=== PATIENT | male | born 1965 | race Caucasian/White ===

== ENCOUNTER → 2017-07-04 | Outpatient (CLI) | payer OTHER ==
[~2017-07-04] MED LIST: BARIUM SULFATE 176 GM BTL PO ONE; BARIUM SULFATE 340 GM POWD ONE
--- NOTE | 2017-07-04 16:04 | RADIOLOGY IMAGING REPORT ---
FACILITY: [facility] [place] PATIENT NAME: Isaac Marquez : 1965 MR: [id number] V: [id number] EXAM DATE: ORDERING PHYSICIAN: RUTH HERNANDEZ TECHNOLOGIST: Location: [facility] Patient: Isaac Marquez : 1965 Visit/Account:[id number] Date of Sevice: 07/04/2017 Exam type: ESOPHAGRAM History: Difficulty swallowing food Comparison: None. Findings: Double contrast esophagram was performed with thick and thin barium there was no demonstration of gas troesophageal reflux however there was a significant narrowing in the distal esophagus at the lower e sophageal sphincter. A 12 mm barium tablet failed to pass through this narrowing into the stomach. No mucosal erosions identified The total fluoroscopy dose area product was 543.67 micro-Ross per mete r squared IMPRESSION: 1. Significant narrowing identified in the distal esophagus at the lower esophageal sphincter with f ailure of a 12 mm barium tablet to pass in to the stomach. No evidence of mucosal erosion identified . Gastric esophageal reflux could not be elicited during the examination Report Dictated By: Cindy Perez MD at 07/04/2017 3:53 PM Report E-Signed By: Cindy Perez MD at 07/04/2017 4:00 PM WSN:[email or web address]
== END ==
LOC: RAD 01:46
PROVIDERS: ATTEND Family Medicine
DX: K22.2 Esophageal obstruction (principal)
CPT/HCPCS: 74220

== ENCOUNTER 2017-07-10 00:36 | Day surgery (SDC) | payer OTHER ==
[~2017-07-10] VITALS: Ht 175.3 cm; Wt 86.6 kg
[2017-07-10] MEDS ORDERED: LIDOCAINE MPF 1% 5 ML VIAL ONE (06:50)
[2017-07-10] MEDS ORDERED: PROPOFOL EMUL(*) 10MG/ML 20 ML 60 ML ONE (06:50)
--- NOTE | 2017-07-10 07:33 | Post Operative Progress Note ---
Post Operative Progress Note Date: Jul 10, 2017 Time: 10:40 Surgeon: federica Anesthesia: dr arellano Pre-Op Diagnosis: dysphagia Post-Op Diagnosis: prepyloric erosions, erosion in duodenal bulb and distal esophageal narrowing Procedure(s): egd with dilation to 20 mm TRISHA PARK MD Jul 10, 2017 07:33
[2017-07-10 09:08] VITALS: BP 150/88
[2017-07-10] MEDS ORDERED: NORMOSOL R SOLN(*) 1000 ML BAG 1,000 ML IV PRN (09:35)
[2017-07-10] MEDS ORDERED: MIDAZOLAM 2 MG/2 ML VIAL IVP PRN (09:35)
[2017-07-10] MEDS ORDERED: LIDOCAINE/SOD BICARB 8.4% SYR ID ONE (09:35)
[2017-07-10] MEDS ORDERED: KETAMINE HCL 500 MG/10 ML VIAL ONE (10:14)
[2017-07-10 10:39] VITALS: BP 147/94
[2017-07-10] MEDS ORDERED: PANT40TA65 PO (10:42)
--- NOTE | 2017-07-10 10:43 | Short(Outpt) Discharge Summary ---
Discharge Summary Reason for Hosp/Final Diag: (1) Dysphagia Hospital Course & Plan: distal esophageal narrowing and prepyloric erosions and duodenal erosion, balloon dilation to 20 mm Departure Discharge to: Home Discharge Instructions Home Meds No Active Prescriptions or Reported Meds Diet: Regular Activity: As Tolerated TRISHA PARK MD Jul 10, 2017 10:43
[2017-07-10 11:04] VITALS: BP 163/97
[2017-07-10 11:26] VITALS: BP 158/97
[2017-07-10 11:27] VITALS: BP 162/98
[2017-07-10 11:30] VITALS: BP 161/99
--- NOTE | 2017-07-10 18:33 | OPERATIVE REPORT 1 ---
EVENT DATE: July 10, 2017 SURGEON: Jono Acosta MD ANESTHESIOLOGIST: Thuan Millan MD ANESTHESIA: Sedation. PREOPERATIVE DIAGNOSIS Dysphagia. POSTOPERATIVE DIAGNOSES 1. Distal esophageal narrowing. 2. Gastritis in the prepyloric area. 3. Duodenal erosion. PROCEDURE PERFORMED Esophagogastroduodenoscopy with balloon dilatation to 20 mm. DESCRIPTION OF PROCEDURE The patient was placed in the left lateral decubitus position and given intravenous sedation. The flexible gastroscope was inserted. The proximal esophagus distended nicely. At the distal esophagus, it was narrowed. There was some resistance getting the scope to go through into the stomach, but we were able to pass it. In the stomach, he had erosion and inflammation in the antrum. At the duodenal bulb, there was an erosion. The second and third portions of the duodenum appeared to be normal. The scope was then slowly withdrawn. The body of the stomach appeared to be normal. The scope was retroflexed. There were no fundic lesions. We then placed the balloon across the distal esophagus and did progressive dilatations to 20 mm. We were then able to pass the scope easily. The patient tolerated the procedure well with no apparent complications. [facility]
== END 2017-07-10 11:46 | disposition home or self-care (01) ==
LOC: OR 00:36
PROVIDERS: ATTEND Surgery
DX: K22.2 Esophageal obstruction (principal); K29.70 Gastritis, unspecified, without bleeding; K26.9 Duodenal ulcer, unspecified as acute or chronic, without hemorrhage or perforation
CPT/HCPCS: 43249; J2001; J2704; J3490

== ENCOUNTER 2018-06-26 00:19 | Day surgery (SDC) | payer OTHER ==
[~2018-06-26] VITALS: Ht 175.3 cm; Wt 84.8 kg
[2018-06-26] VITALS (7 sets, daily range): BP systolic 155–165; BP diastolic 92–105
[~2018-06-26 00:19] MED LIST changes: -BARIUM SULFATE 176 GM BTL PO ONE; -BARIUM SULFATE 340 GM POWD ONE; +PANT40TA65 PO
[2018-06-26] MEDS ORDERED: LIDOCAINE/SOD BICARB 8.4% SYR ID ONE (08:25)
[2018-06-26] MEDS ORDERED: NORMOSOL R SOLN(*) 1000 ML BAG 1,000 ML IV PRN (08:25)
[2018-06-26] MEDS ORDERED: LIDOCAINE 2% VISC SLN 15ML UDC PO ONE (09:55)
[2018-06-26] MEDS ORDERED: fentaNYL CITR 100 MCG/2 ML AMP ONE (09:55)
[2018-06-26] MEDS ORDERED: MIDAZOLAM 2 MG/2 ML VIAL ONE ×2 (09:55→09:56)
[2018-06-26] MEDS ORDERED: KETAMINE HCL 500 MG/10 ML VIAL ONE ×2 (10:13→10:14)
[2018-06-26] MEDS ORDERED: LABETALOL HCL 20 MG/4 ML SYR ONE (10:27)
--- NOTE | 2018-06-26 10:36 | Short(Outpt) Discharge Summary ---
Discharge Summary Reason for Hosp/Final Diag: (1) Dysphagia Hospital Course & Plan: pt presented for egd. he tolerated the procedure well and there were no complications. path pending. pt will be discharged home when criteria met. Departure Discharge to: Home Discharge Instructions Home Meds Active Scripts Pantoprazole Sodium (PANTOPRAZOLE SODIUM) 40 Mg Tablet., 40 MG PO QDAY, #90 TAB.SR 3 Refills Prov:TRISHA PARK MD 07/10/17 Diet: Regular Activity: As Tolerated Special Instructions: we will call you in7-10 days with biopsy results. SHANTANU HINDS Jun 26, 2018 10:36
--- NOTE | 2018-06-26 10:48 | NUR ---
1024-pt arrives to nd area on cart in sf position. vss. sbar report bedside from dr aguilera anesthesia and brian tn. 1028-pts blood pressure high, order for labatolol obtained from dr aguilera. 1032-pts blood pressure re taken before medication administration. now falls out of parameters for medications. med held at this time. pt trailed on room air at this time 1036-pts o2 drops as he sleeps to 86%. placed on nc at 2 lpm at this time
--- NOTE | 2018-06-26 11:03 | NUR ---
1055-pt states he would like to get up at this time and get changed. orthostatics done at this time. pt to change clothes. pt reports mild dizziness on sitting and standing. appears to be steady on feet. will monitor for 2 hours total post op per dr staton orders. pts ride called and updated at this time
--- NOTE | 2018-06-26 11:12 | NUR ---
1110-pt cassi changed clothes and is sitting in chair in preop bay. given water to drink. denies nausea. timeline reinforced at this time. denies further questions or concerns. denies any further needs
--- NOTE | 2018-06-26 11:50 | NUR ---
1141-PT DENIES NAUSEA, REFUSES ANYTHING ELSE TO EAT OR DRINK.
== END 2018-06-26 12:29 | disposition home or self-care (01) ==
LOC: OR 00:19
PROVIDERS: ATTEND Surgery
DX: K20.0 Eosinophilic esophagitis (principal)
CPT/HCPCS: 43239; 43249; 87077; 88305; 88313; 88344; C1726; J2250; J3010; J3490